=== PATIENT | female | born 1970 | race Caucasian/White ===

== ENCOUNTER 2017-11-07 10:10 | Emergency (ER) | payer OTHER ==
[~2017-11-07] VITALS: Ht 160 cm; Wt 60.0 kg
[2017-11-07 10:13] VITALS: BP 130/64; PULSE 66; RESP 14; TEMP 98.5; O2SAT 98
[2017-11-07 10:25] VITALS: PULSE 59; RESP 16; O2SAT 100
[2017-11-07] MEDS ORDERED: LIDOCAINE VISCOUS 2% SOLN 15 ML UDC PO ONE (10:45)
[2017-11-07] MEDS ORDERED: ALUMINUM/MAGNESIUM/SIMETH 30 ML CUP PO ONE (10:45)
--- NOTE | 2017-11-07 11:04 | RADRPT ---
EXAM DATE/TIME: 11/07/2017 10:27 [facility] COMPARISON: No previous studies available for comparison. INDICATIONS : Chest pain. MEDICAL HISTORY : None. SURGICAL HISTORY : None. ENCOUNTER: Initial ACUITY: 2 days PAIN SCORE: 10/10 LOCATION: Bilateral chest FINDINGS: A single view of the chest demonstrates the lungs to be symmetrically aerated without evidence of mas s, infiltrate or effusion. The cardiomediastinal contours are unremarkable. Osseous structures are intact. CONCLUSION: Normal examination for a patient of this age. Syd Marin MD on November 07, 2017 at 11:02 Board Certified Radiologist. This report was verified electronically.
[2017-11-07 11:06] LABS: AUTOMATED NEUTROPHIL # 6.4 TH/MM3 (1.8-7.7); BASOPHIL # 0.1 TH/MM3 (0-0.2); BASOPHIL % 1.3 % (0.0-2.0); EOSINOPHIL # 0.1 TH/MM3 (0-0.4); EOSINOPHIL % 1.3 % (0.0-4.0); HEMATOCRIT 41.3 % (35.0-46.0); HEMOGLOBIN 14.2 GM/DL (11.6-15.3); LYMPH % 13.7 % (9.0-44.0); LYMPHOCYTE # 1.1 TH/MM3 (1.0-4.8); MEAN CELL VOLUME 88.9 FL (80.0-100.0); MEAN CORPUSCULAR HEMOGLOBIN 30.4 PG (27.0-34.0); MEAN CORPUSCULAR HGB CONC 34.2 % (32.0-36.0); MEAN PLATELET VOLUME 8.6 FL (7.0-11.0); MONO % 7.3 % (0.0-8.0); MONOCYTE # 0.6 TH/MM3 (0-0.9); NEUT % 76.4 % (16.0-70.0); PLATELET COUNT 351 TH/MM3 (150-450); RED BLOOD COUNT 4.65 MIL/MM3 (4.00-5.30); RED CELL DISTRIBUTION WIDTH 13.6 % (11.6-17.2); WHITE BLOOD COUNT 8.3 TH/MM3 (4.0-11.0)
[2017-11-07 11:17] LABS: INTERNATIONAL NORMALIZED RATIO 1.1 RATIO; PROTHROMBIN TIME - PATIENT 10.7 SEC (9.8-11.6)
[2017-11-07 11:39] LABS: BICARBONATE 23.8 MEQ/L (21.0-32.0); BLOOD UREA NITROGEN 10 MG/DL (7-18); CALCIUM 9.2 MG/DL (8.5-10.1); CHLORIDE 108 MEQ/L (98-107); GLOMERULAR FILTRATION RATE 67 ML/MIN (>89); GLUCOSE,RANDOM 101 MG/DL (74-106); MAGNESIUM 2.3 MG/DL (1.5-2.5); SODIUM (NA) 139 MEQ/L (136-145)
[2017-11-07 11:43] LABS: TROPONIN I LESS THAN 0.02 NG/ML (0.02-0.05)
--- NOTE | 2017-11-07 11:45 | PD ---
HPI Chief Complaint: Cardiac Complaint Time Seen by Provider: 10:31 Travel History International Travel<30 days: No Contact w/Intl Traveler<30days: No Traveled to known affect area: No History of Present Illness HPI 47-year-old female arrives to the ER with complaint of chest pain location is retrosternal towards the inferior aspect of the sternum. She is felt that intermittently for several days. She has had similar pain in the past. She underwent a stress test and an EKG in echocardiogram within the last year all of which was normal. She denies shortness of breath. She wonders if it may be gas and has been taking Gas-X. She denies fever PFSH Past Medical History Medical History: Denies Significant Hx Diminished Hearing: No Tetanus Vaccination: > 5 Years Influenza Vaccination: No ?: Not LMP: 11/05/17 Menopausal: Yes : 4 Para: 3 Past Surgical History Abdominal Surgery: Yes (hernia repair) Section: Yes (x1 ) Social History Alcohol Use: No Tobacco Use: Yes (quit 6 years ) Substance Use: No Allergies-Medications (Allergen,Severity, Reaction): Coded Allergies: No Known Allergies (Unverified , 11/07/17) Reported Meds & Prescriptions Reported Meds & Active Scripts Active No Active Prescriptions or Reported Medications Physical Exam Narrative GENERAL: Well-nourished well-developed 47-year-old female no acute distress, Vital Signs Date Time Temp Pulse Resp B/P (MAP) Pulse Ox O2 Delivery O2 Flow Rate FiO2 11/07/17 12:45 97.7 58 16 118/76 (90) 99 11/07/17 11:50 97.8 56 15 124/76 (92) 99 Room Air 11/07/17 10:25 59 16 100 11/07/17 10:25 100 Room Air 11/07/17 10:25 16 100 Room Air 11/07/17 10:20 59 15 99 Room Air 11/07/17 10:13 98.5 66 14 130/64 (86) 98 SKIN: Warm and dry. HEAD: Atraumatic. Normocephalic. EYES: Pupils equal and round. No scleral icterus. No injection or drainage. ENT: No nasal bleeding or discharge. Mucous membranes pink and moist. NECK: Trachea midline. No JVD. CARDIOVASCULAR: Regular rate and rhythm. RESPIRATORY: No accessory muscle use. Clear to auscultation. Breath sounds equal bilaterally. GASTROINTESTINAL: Abdomen soft, non-tender, nondistended. Hepatic and splenic margins not palpable. MUSCULOSKELETAL: Extremities without clubbing, cyanosis, or edema. No obvious deformities. NEUROLOGICAL: Awake and alert. No obvious cranial nerve deficits. Motor grossly within normal limits. Five out of 5 muscle strength in the arms and legs. Normal speech. PSYCHIATRIC: Appropriate mood and affect; insight and judgment normal. Data Data Last Documented VS Vital Signs Date Time Temp Pulse Resp B/P (MAP) Pulse Ox O2 Delivery O2 Flow Rate FiO2 11/07/17 12:45 97.7 58 16 118/76 (90) 99 11/07/17 11:50 Room Air Orders Orders Electrocardiogram (11/07/17 10:17) Basic Metabolic Panel (Bmp) (11/07/17 10:17) Ckmb (Isoenzyme) Profile (11/07/17 10:17) Complete Blood Count With Diff (11/07/17 10:17) Magnesium (Mg) (11/07/17 10:17) Prothrombin Time / Inr (Pt) (11/07/17 10:17) Act Partial Throm Time (Ptt) (11/07/17 10:17) Troponin I (11/07/17 10:17) Chest, Single Ap (11/07/17 10:17) Ecg Monitoring (11/07/17 10:17) Bilateral Bp Monitoring (11/07/17 10:17) Iv Access Insert/Monitor (11/07/17 10:17) Oximetry (11/07/17 10:17) Oxygen Administration (11/07/17 10:17) Al-Mag Hy-Si 40-40-4 Mg/Ml Liq (Mag-Al P (11/07/17 10:45) Lidocaine 2% Viscous (Xylocaine 2% Visco (11/07/17 10:45) Ed Discharge Order (11/07/17 12:28) Labs Laboratory Tests Test 11/07/17 10:30 White Blood Count 8.3 TH/MM3 Red Blood Count 4.65 MIL/MM3 Hemoglobin 14.2 GM/DL Hematocrit 41.3 % Mean Corpuscular Volume 88.9 FL Mean Corpuscular Hemoglobin 30.4 PG Mean Corpuscular Hemoglobin Concent 34.2 % Red Cell Distribution Width 13.6 % Platelet Count 351 TH/MM3 Mean Platelet Volume 8.6 FL Neutrophils (%) (Auto) 76.4 % Lymphocytes (%) (Auto) 13.7 % Monocytes (%) (Auto) 7.3 % Eosinophils (%) (Auto) 1.3 % Basophils (%) (Auto) 1.3 % Neutrophils # (Auto) 6.4 TH/MM3 Lymphocytes # (Auto) 1.1 TH/MM3 Monocytes # (Auto) 0.6 TH/MM3 Eosinophils # (Auto) 0.1 TH/MM3 Basophils # (Auto) 0.1 TH/MM3 CBC Comment DIFF FINAL Differential Comment Prothrombin Time 10.7 SEC Prothromb Time International Ratio 1.1 RATIO Activated Partial Thromboplast Time 24.3 SEC Blood Urea Nitrogen 10 MG/DL Creatinine 0.90 MG/DL Random Glucose 101 MG/DL Calcium Level 9.2 MG/DL Magnesium Level 2.3 MG/DL Sodium Level 139 MEQ/L Potassium Level 3.7 MEQ/L Chloride Level 108 MEQ/L Carbon Dioxide Level 23.8 MEQ/L Anion Gap 7 MEQ/L Estimat Glomerular Filtration Rate 67 ML/MIN Total Creatine Kinase 79 U/L Troponin I LESS THAN 0.02 NG/ML MDM Medical Decision Making Medical Screen Exam Complete: Yes Emergency Medical Condition: Yes Medical Record Reviewed: Yes Differential Diagnosis NSTEMI, unstable angina, coronary vasospasm, PE, PTX, aortic dissection, pericarditis, myocarditis, endocarditis, PNA, esophageal disease, aneurysm, musculoskeletal etiologies, anxiety, cocaine/sympathomimetic abuse Narrative Course CBC & BMP Diagram 11/07/17 10:30 Calcium Level 9.2, Magnesium Level 2.3 Tn < 0.02 Last Impressions Chest X-Ray 11/07/17 1017 Signed Impressions: Service Date/Time: Tuesday, November 07, 2017 10:27 - CONCLUSION: Normal examination for a patient of this age. Syd Marin MD The negative echo and stress test with an EKG in the last year coronary disease is considered reasonably safely unlikely. With normal vital signs and no shortness of breath or coughing it is less likely to reflect a PE. Return precautions discussed. Time spent at the bedside with the patient about 15 minutes at the conclusion of the evaluation. Diagnosis Primary Impression: Chest pain Qualified Codes: R07.9 - Chest pain, unspecified Referrals: Primary Care Physician 2 days Med/Other Pt SpecificInfo: No Change to Meds Scripts No Active Prescriptions or Reported Meds Disposition: 01 DISCHARGE HOME Condition: Jose M Oliveira MD Nov 07, 2017 11:45
[2017-11-07 11:50] VITALS: BP 124/76; PULSE 56; RESP 15; TEMP 97.8; O2SAT 99
[2017-11-07 12:45] VITALS: BP 118/76; TEMP 97.7
--- NOTE | 2017-11-07 13:25 | EKG ---
Date Performed: 11/07/2017 Time Performed: 10:33:34 PTAGE: 47 years EKG: SINUS BRADYCARDIA LOW QRS VOLTAGE IN PRECORDIAL LEADS BORDERLINE ECG NO PREVIOUS TRACING DOCTOR: Blair Vázquez Interpretating Date/Time 11/07/2017 13:23:42
== END 2017-11-07 12:45 | disposition home or self-care (01) ==
LOC: NEPC 10:10
DX: R07.9 Chest pain, unspecified (principal); R94.31 Abnormal electrocardiogram [ECG] [EKG]; Z87.891 Personal history of nicotine dependence
CPT/HCPCS: 71045; 80048; 82550; 83735; 84484; 85025; 85610; 85730; 93005; 99285

== ENCOUNTER 2017-11-07 17:18 | Emergency (ER) | payer OTHER ==
[~2017-11-07] VITALS: Ht 160 cm; Wt 60.0 kg
[2017-11-07] MEDS ORDERED: IOHEXOL 350 MG/ML 10 ML VIAL (for RAD DIAG) IVCONTRAST ONE (17:19)
[2017-11-07 17:21] VITALS: BP 137/61; PULSE 69; RESP 22; TEMP 98.2; O2SAT 97
[2017-11-07] MEDS ORDERED: LORazepam 2 MG/ML VIAL IV PUSH ONE (18:00)
[2017-11-07] MEDS ORDERED: SODIUM CHLOR 0.9% 1000 ML INJ 1,000 ML IV ONE (18:00)
[2017-11-07] MEDS ORDERED: SODIUM CHLORIDE 0.9% FLUSH 10 ML FLUSH IVF PRN (18:00)
[2017-11-07 18:10] VITALS: BP_SYST 122; BP_SYST 126; BP_DIAS 57; BP_DIAS 60; PULSE 58; RESP 15; O2SAT 98
[2017-11-07 18:12] VITALS: RESP 16; O2SAT 98
[2017-11-07 18:33] LABS: BASOPHIL # 0.1 TH/MM3 (0-0.2); BASOPHIL % 0.7 % (0.0-2.0); EOSINOPHIL # 0.1 TH/MM3 (0-0.4); EOSINOPHIL % 1.4 % (0.0-4.0); HEMOGLOBIN 13.8 GM/DL (11.6-15.3); LYMPH % 18.1 % (9.0-44.0); LYMPHOCYTE # 1.8 TH/MM3 (1.0-4.8); MEAN CELL VOLUME 89.9 FL (80.0-100.0); MEAN CORPUSCULAR HGB CONC 34.4 % (32.0-36.0); MEAN PLATELET VOLUME 8.3 FL (7.0-11.0); MONO % 7.6 % (0.0-8.0); MONOCYTE # 0.7 TH/MM3 (0-0.9); NEUT % 72.2 % (16.0-70.0); PLATELET COUNT 340 TH/MM3 (150-450); RED BLOOD COUNT 4.45 MIL/MM3 (4.00-5.30); RED CELL DISTRIBUTION WIDTH 13.3 % (11.6-17.2); WHITE BLOOD COUNT 9.7 TH/MM3 (4.0-11.0)
[2017-11-07 18:44] LABS: AST (GOT) 13 U/L (15-37); BICARBONATE 22.6 MEQ/L (21.0-32.0); BLOOD UREA NITROGEN 9 MG/DL (7-18); CHLORIDE 108 MEQ/L (98-107); CREATININE 0.86 MG/DL (0.50-1.00); GLOMERULAR FILTRATION RATE 70 ML/MIN (>89); GLUCOSE,RANDOM 97 MG/DL (74-106); MAGNESIUM 2.4 MG/DL (1.5-2.5); SODIUM (NA) 139 MEQ/L (136-145)
[2017-11-07 18:45] LABS: ALT (GPT) 11 U/L (10-53)
[2017-11-07 18:49] LABS: ALKALINE PHOSPHATASE 59 U/L (45-117); INTERNATIONAL NORMALIZED RATIO 1.1 RATIO; PROTHROMBIN TIME - PATIENT 10.9 SEC (9.8-11.6); TOTAL BILIRUBIN ADULT 0.4 MG/DL (0.2-1.0); TOTAL PROTEIN 7.6 GM/DL (6.4-8.2); TROPONIN I LESS THAN 0.02 NG/ML (0.02-0.05)
--- NOTE | 2017-11-07 18:52 | RADRPT ---
EXAM DATE/TIME: 11/07/2017 18:36 [facility] COMPARISON: No previous studies available for comparison. INDICATIONS : Chest pain and dizziness. IV CONTRAST: 70 cc Omnipaque 350 (iohexol) IV RADIATION DOSE: 6.15 CTDIvol (mGy) MEDICAL HISTORY : None SURGICAL HISTORY : Herina repair ENCOUNTER: Initial ACUITY: 1 day PAIN SCALE: 2/10 LOCATION: Bilateral chest TECHNIQUE: Volumetric scanning of the chest was performed using a pulmonary embolism protocol MIP images were re constructed. Using automated exposure control and adjustment of the mA and/or kV according to patien t size, radiation dose was kept as low as reasonably achievable to obtain optimal diagnostic quality images. DICOM format image data is available electronically for review and comparison. Follow-up recommendations for detected pulmonary nodules are based at a minimum on nodule size and pa tient risk factors according to Fleischner Society Guidelines. FINDINGS: PULMONARY ARTERIES: No filling defects are seen in the pulmonary arteries through the segmental level. LUNGS: There is no consolidation or pneumothorax . No concerning pulmonary nodule is visualized. There is m ild to moderate centrilobular emphysema. PLEURAE: There is no pleural thickening or pleural effusion. MEDIASTINUM: There is good visualization of the great vessels of the middle mediastinum. No evidence of mediastin al or hilar adenopathy/mass. MUSCULOSKELETAL: No acute abnormality is identified. MISCELLANEOUS: The visualized upper abdominal organs demonstrate no acute abnormality. CONCLUSION: 1. No PE is identified. Additionally, no acute findings identified to explain the chest pain. 2. Mild to moderate severity centrilobular emphysema. Javon Watkins MD on November 07, 2017 at 18:47 Board Certified Radiologist. This report was verified electronically.
[2017-11-07 19:08] VITALS: BP 126/60; PULSE 69; RESP 18; O2SAT 100
--- NOTE | 2017-11-07 19:09 | PD ---
HPI Chief Complaint: Syncope/Near-Syncope Time Seen by Provider: 17:32 Travel History International Travel<30 days: No Contact w/Intl Traveler<30days: No Traveled to known affect area: No History of Present Illness HPI The patient is 47. She was seen by me earlier today with a complaint of retrosternal chest pain. She was discharged after unremarkable workup in the setting of a normal stress test and normal echocardiogram from within the last year and minimal risk factors. She was discharged and ate a full breakfast and drank some strong coffee. Upon returning to her hotel felt very dizzy as if she were going to pass out. No chest pain diaphoresis or nausea accompanied the family. It worried the significant other and they arrived here for evaluation. They drove down here from [place] over the past 3 days. No history of DVT. The wonders if maybe symptoms could be related to menopause. No headache. No numbness tingling weakness facial symmetry or change in speech. PFSH Past Medical History Diminished Hearing: No Tetanus Vaccination: > 5 Years Influenza Vaccination: No ?: Not LMP: 11/05/17 Menopausal: Yes : 4 Para: 3 Past Surgical History Abdominal Surgery: Yes (hernia repair) Section: Yes (x1 ) Social History Alcohol Use: No Tobacco Use: Yes (quit 6 years ) Substance Use: No Allergies-Medications (Allergen,Severity, Reaction): Coded Allergies: No Known Allergies (Unverified , 11/07/17) Reported Meds & Prescriptions Reported Meds & Active Scripts Active No Active Prescriptions or Reported Medications Review of Systems Except as stated in HPI: all other systems reviewed are Neg General / Constitutional: No: Fever Physical Exam Narrative GENERAL: 47-year-old female pleasant well-nourished well-developed Vital Signs Date Time Temp Pulse Resp B/P (MAP) Pulse Ox O2 Delivery O2 Flow Rate FiO2 11/07/17 19:16 11/07/17 19:08 69 18 126/60 (82) 100 Room Air 11/07/17 18:12 16 98 Room Air 11/07/17 18:12 98 Room Air 11/07/17 18:10 58 15 122/57 (78) 98 Room Air 126/60 (82) 11/07/17 18:09 98 Room Air 11/07/17 17:30 60 15 99 Room Air 11/07/17 17:21 98.2 69 22 137/61 (86) 97 SKIN: Warm and dry. HEAD: Atraumatic. Normocephalic. EYES: Pupils equal and round. No scleral icterus. No injection or drainage. ENT: No nasal bleeding or discharge. Mucous membranes pink and moist. NECK: Trachea midline. No JVD. CARDIOVASCULAR: Regular rate and rhythm. RESPIRATORY: No accessory muscle use. Clear to auscultation. Breath sounds equal bilaterally. GASTROINTESTINAL: Abdomen soft, non-tender, nondistended. Hepatic and splenic margins not palpable. MUSCULOSKELETAL: Extremities without clubbing, cyanosis, or edema. No obvious deformities. NEUROLOGICAL: Awake and alert. No obvious cranial nerve deficits. Motor grossly within normal limits. Five out of 5 muscle strength in the arms and legs. Normal speech. PSYCHIATRIC: Appropriate mood and affect; insight and judgment normal. Data Data Last Documented VS Vital Signs Date Time Temp Pulse Resp B/P (MAP) Pulse Ox O2 Delivery O2 Flow Rate FiO2 11/07/17 19:16 11/07/17 19:08 69 18 100 Room Air 11/07/17 17:21 98.2 Orders Orders Electrocardiogram (11/07/17 17:56) Ckmb (Isoenzyme) Profile (11/07/17 17:56) Complete Blood Count With Diff (11/07/17 17:56) Comprehensive Metabolic Panel (11/07/17 17:56) Magnesium (Mg) (11/07/17 17:56) Prothrombin Time / Inr (Pt) (11/07/17 17:56) Act Partial Throm Time (Ptt) (11/07/17 17:56) Troponin I (11/07/17 17:56) Lipase (11/07/17 17:56) Ecg Monitoring (11/07/17 17:56) Bilateral Bp Monitoring (11/07/17 17:56) Iv Access Insert/Monitor (11/07/17 17:56) Oximetry (11/07/17 17:56) Oxygen Administration (11/07/17 17:56) Sodium Chloride 0.9% Flush (Ns Flush) (11/07/17 18:00) Ct Pulmonary Angiogram (11/07/17 17:56) Sodium Chlor 0.9% 1000 Ml Inj (Ns 1000 M (11/07/17 18:00) Lorazepam Inj (Ativan Inj) (11/07/17 18:00) Iohexol 350 Inj (Omnipaque 350 Inj) (11/07/17 17:19) Ed Discharge Order (11/07/17 19:09) Labs Laboratory Tests Test 11/07/17 18:20 White Blood Count 9.7 TH/MM3 Red Blood Count 4.45 MIL/MM3 Hemoglobin 13.8 GM/DL Hematocrit 40.0 % Mean Corpuscular Volume 89.9 FL Mean Corpuscular Hemoglobin 31.0 PG Mean Corpuscular Hemoglobin Concent 34.4 % Red Cell Distribution Width 13.3 % Platelet Count 340 TH/MM3 Mean Platelet Volume 8.3 FL Neutrophils (%) (Auto) 72.2 % Lymphocytes (%) (Auto) 18.1 % Monocytes (%) (Auto) 7.6 % Eosinophils (%) (Auto) 1.4 % Basophils (%) (Auto) 0.7 % Neutrophils # (Auto) 7.0 TH/MM3 Lymphocytes # (Auto) 1.8 TH/MM3 Monocytes # (Auto) 0.7 TH/MM3 Eosinophils # (Auto) 0.1 TH/MM3 Basophils # (Auto) 0.1 TH/MM3 CBC Comment DIFF FINAL Differential Comment Prothrombin Time 10.9 SEC Prothromb Time International Ratio 1.1 RATIO Activated Partial Thromboplast Time 24.0 SEC Blood Urea Nitrogen 9 MG/DL Creatinine 0.86 MG/DL Random Glucose 97 MG/DL Total Protein 7.6 GM/DL Albumin 4.0 GM/DL Calcium Level 9.0 MG/DL Magnesium Level 2.4 MG/DL Alkaline Phosphatase 59 U/L Aspartate Amino Transf (AST/SGOT) 13 U/L Alanine Aminotransferase (ALT/SGPT) 11 U/L Total Bilirubin 0.4 MG/DL Sodium Level 139 MEQ/L Potassium Level 3.6 MEQ/L Chloride Level 108 MEQ/L Carbon Dioxide Level 22.6 MEQ/L Anion Gap 8 MEQ/L Estimat Glomerular Filtration Rate 70 ML/MIN Total Creatine Kinase 75 U/L Troponin I LESS THAN 0.02 NG/ML Lipase 161 U/L [facility] Medical Decision Making Medical Screen Exam Complete: Yes Emergency Medical Condition: Yes Medical Record Reviewed: Yes Differential Diagnosis Syncope, arrhythmia, PE, anemia, electrolyte imbalance Narrative Course CBC & BMP Diagram 11/07/17 18:20 Total Protein 7.6, Albumin 4.0, Calcium Level 9.0, Magnesium Level 2.4, Alkaline Phosphatase 59, Aspartate Amino Transf (AST/SGOT) 13 L, Alanine Aminotransferase (ALT/SGPT) 11, Total Bilirubin 0.4 Troponin is undetectable EKG shows normal sinus rhythm without preexcitation or ischemic injury pattern CT pulmonary angiogram shows moderate emphysema, no PE The presentation could reflect a hormonal changes associated with menopause though still indeterminate. The patient is resting comfortably and feels better, is alert and in no distress. The patients results and examination findings were discussed. The repeat examination is unremarkable and benign. The history, exam, diagnostic testing, and current condition do not suggest any significant pathology to warrant further testing, continued ED treatment, admission, or surgical evaluation at this point. The vital signs have been stable. The patient does not have uncontrollable pain, intractable vomiting, or other significant symptoms. The patient's condition is stable and appropriate for discharge. The patient will pursue further outpatient evaluation with a primary care physician or other designated or consulting physician as indicated in the discharge instructions. The patient expressed understanding and was agreeable with this plan. Diagnosis Primary Impression: Near syncope Referrals: Primary Care Physician 2 days Med/Other Pt SpecificInfo: No Change to Meds Scripts No Active Prescriptions or Reported Meds Disposition: 01 DISCHARGE HOME Condition: Stable Jose M Harper MD Nov 07, 2017 19:09
--- NOTE | 2017-11-08 15:19 | EKG ---
Date Performed: 11/07/2017 Time Performed: 18:06:58 PTAGE: 47 years EKG: SINUS BRADYCARDIA LOW QRS VOLTAGE IN PRECORDIAL LEADS Since previous tracing, no significan t change noted BORDERLINE ECG PREVIOUS TRACING : 11/07/2017 10.33 DOCTOR: Blair Vázquez Interpretating Date/Time 11/08/2017 15:17:44
== END 2017-11-07 19:26 | disposition home or self-care (01) ==
LOC: NEPC 17:18
DX: R55 Syncope and collapse (principal); R07.9 Chest pain, unspecified; R94.31 Abnormal electrocardiogram [ECG] [EKG]; Z87.891 Personal history of nicotine dependence
CPT/HCPCS: 71275; 80053; 82550; 83690; 83735; 84484; 85025; 85610; 85730; 93005; 96361; 96374; 99285; J2060; J7030; Q9967